=== PATIENT | female | born 1965 | race Caucasian/White ===

== ENCOUNTER 2022-05-04 23:23 | Inpatient (IN) | payer MEDICARE, MEDICAID, SELFPAY ==
[2022-05-05 01:38] VITALS: BP 88/56; PULSE 75; RESP 16; TEMP 36.6; O2SAT 97
--- NOTE | 2022-05-05 01:46 | PC.ADMIT ---
PT is a 56 year old single woman, who lost her youngest son to overdose in February of this year. She states that she is not having thoughts of SI but is grieving and trying to cope with the lose. She admits to a history of opioid use. She states she was seeking help by going to [facility] in [place] and said I did only a small amount of fentayl so I could be admitted . She had been hospitalized in the ICU at [facility] being treated for sepsis, when after discharge to her home she became overwhelmed by the thought of her son being gone and told a family member she didn't know how she would go on, this information was told to the police who sectioned her to [facility]. [facility] determined the need for inpatient evaluation and she was transferred to [facility] with out incident. Her mood is sad and tearful especially when talking about her son, other latif alert and appropriate. Covid test was negative. She signed a CV on arrival she is calm and cooperative.
[2022-05-05] MEDS: cloNIDine HCL 0.1 MG TABLET PO ×4 (05:56→22:07)
[2022-05-05 06:00] VITALS: BP 103/64; PULSE 69; RESP 16; TEMP 36.4; O2SAT 98
[2022-05-05 07:40] LABS: Estimated Average Glucose 97 mg/dL
[2022-05-05 07:46] LABS: Alanine Aminotransferase 14 U/L (0-31); Albumin Level 3.8 g/dL (3.5-5.0); Alkaline Phosphatase 103 U/L (39-117); Anion Gap 13 (12-20); Aspartate Amino Transferase 19 U/L (5-31); Bilirubin Total 0.4 mg/dL (0.0-1.0); Blood Urea Nitrogen 18 mg/dL (9-16); Calcium 8.8 mg/dL (8.4-10.2); Carbon Dioxide 25 mmol/L (22-29); Chloride 104 mmol/L (96-108); Cholesterol 212 mg/dL; Estimated Glomerular Filt Rate 56; Glucose Fasting 84 mg/dL (60-99); HDL Cholesterol 46 mg/dL; LDL Cholesterol Calculated 153 mg/dl; Potassium 4.1 mmol/L (3.3-5.1); Sodium 138 mmol/L (135-145); Total Protein 6.8 g/dL (6.5-8.0); Triglycerides 67 mg/dL
[2022-05-05 08:06] LABS: Thyroid Stimulating Hormone 0.39 uIU/mL (0.32-4.0)
[2022-05-05] MEDS: Famotidine 20 MG TABLET PO ×2 (09:02→22:07)
[2022-05-05] MEDS: Nicotine 14 MG PATCH.TD24 TRANSDERMA (09:02)
[2022-05-05] MEDS: busPIRone HCl 10 MG TABLET PO ×2 (09:02→22:06)
[2022-05-05] MEDS: dilTIAZem HCL CD 240 MG CAP.ER.DEG PO (09:02)
[2022-05-05 09:17] VITALS: BP 104/65; PULSE 76
[2022-05-05] MEDS: clonazePAM 1 MG TABLET PO (09:21)
[2022-05-05] MEDS: Metoprolol Succinate ER 25 MG TAB.ER.24H PO (12:12)
[2022-05-05] MEDS: FLUoxetine HCl 20 MG CAPSULE 40 MG PO (12:13)
[2022-05-05 12:15] VITALS: BP 121/77; PULSE 68
--- NOTE | 2022-05-05 12:25 | HO.PSYADMNOT ---
HPI Date of Service: 05/05/22 Chief Complaint: adjustment disorder Sources of Information: patient interviewed, chart reviewed and crisis/core team assessment reviewed HPI Subjective Notes: Conditional Voluntary Narrative: Patientis a 56 year old female with a history of benzodiazepine dependence and depression. She reports she lost her son in February suddenly and the cause of is still under investigation. She reports she was at [facility] for detox. She was discharged. She had also been at the hospital admitted medically prior to that and was in sepsis. She says she had not been at home for close to a month and when she returned there from the detox facility, she saw her son's belongings and started crying and became increasingly sad. She was screaming. She says her other son's significant other may have called the police. She feels angry and embarrassed. Feels like she doesn't want to be here. She denies SI and says she is grieving the loss of her son. [facility]PAT reviewed. She says she is not on the Suboxone anymore. She says her mother picked up her meds and didn't know she was taken off. Klonopin dose has been the same for as far back as able to review MassPAT (2 years) 2 mg QID although patient says she doesn't always use it that much and generally 2-3 times a day. Patient says she has seizures when she tried to taper. Past Psychiatric History: Reports one inpatient psychiatric admission many years ago and says she received ECT then. Reports her medications have been filled by her PCP for many years. Medical Evaluation Reviewed: Hospitalist Jono Pending [facility] Narrative: COPD Venous stasis History of cellulitis HTN GERD Narrative: Appendectomy Hernia Neck and back surgery Family History: Hx of drug use Social History: Lives alone in senior housing. She says she is the youngest person there. Had 2 sons. One passed recently of unknown cause. Substance History: Opioid use disorder Diagnostics Vital Signs (24Hr): Vital Signs - 24 hr 05/05/22 01:38 05/05/22 06:00 05/05/22 09:17 Temperature 98 F 97.5 F Pulse Rate 75 69 76 Respiratory Rate 16 16 Blood Pressure 88/56 L 103/64 104/65 Pulse Oximetry 97 98 Oxygen Delivery Method Room Air 05/05/22 12:15 Temperature Pulse Rate 68 Respiratory Rate Blood Pressure 121/77 Pulse Oximetry Oxygen Delivery Method Labs Results: 05/05/22 07:21 Labs: Laboratory Results - last 48 hr 05/05/22 05/05/22 07:21 07:21 Sodium 138 Potassium 4.1 Chloride 104 Carbon Dioxide 25 Anion Gap 13 BUN 18 H Creatinine 1.02 Estim Creat Clear Calc TNP Estimated GFR 56 Fasting Glucose 84 Estimat Average Glucose 97 Hemoglobin A1c % 5.0 Calcium 8.8 Total Bilirubin 0.4 AST 19 ALT 14 Alkaline Phosphatase 103 Total Protein 6.8 Albumin 3.8 Triglycerides 67 Cholesterol 212 LDL Cholesterol, Calc 153 HDL Cholesterol 46 TSH 0.39 Meds/Allergies Meds Home Medications Medication Instructions Recorded Confirmed Type cyclobenzaprine 5 mg tablet 10 mg PO TID 05/05/22 05/05/22 History dextroamphetamine-amphetamine 30 30 mg PO BID 05/05/22 05/05/22 History mg tablet (Adderall) fluoxetine 40 mg capsule (Prozac) 40 mg PO DAILY 05/05/22 05/05/22 History metoprolol succinate 25 mg 25 mg PO DAILY 05/05/22 05/05/22 History tablet,extended release 24 hr Allergies Allergies Allergy/AdvReac Type Severity Reaction Status Date / Time amoxicillin [From Augmentin] Allergy Unknown Unknown Verified 05/04/22 23:50 clavulanic acid Allergy Unknown Unknown Verified 05/04/22 23:50 [From Augmentin] Mental Status Exam Mental Status Exam Patient Appearance: Appropriate Patient Orientation: Person, Place, Time and Situation Level of Consciousness: Awake and Restless Patient Behavior: Appropriate, Dependent, Anxious, Good Eye Contact and Crying Mood Description: Depressed, Anxious, Labile, Sad and Nervous Affect Description: Depressed, Sad and Nervous Patient Cognition Impaired: No Ability to Follow Directions: Good Speech Pattern: Clear and Perseverating Hallucinations: None Delusions: Not Present Thought Process: Distracted Thought Content: positive for Intact, positive for Goal Oriented and positive for Perseveration Depressive Symptoms: Increased Anxiety, Crying Spells and Feelings of Worthlessness Judgement: Fair Assessment & Plan Assessment & Plan (1) Depression, major, severe recurrence: Status: Acute Code(s): F33.2 - Major depressive disorder, recurrent severe without psychotic features (2) Polysubstance (including opioids) dependence w/o physiol dependence: Status: Acute Code(s): F19.20 - Other psychoactive substance dependence, uncomplicated (3) Grief at loss of child: Status: Acute Code(s): F43.21 - Adjustment disorder with depressed mood; Z63.4 - Disappearance and of family member (4) Suicidal ideation: Status: Acute Code(s): R45.851 - Suicidal ideations Plan Admit to [facility] Continue current medications. Collaterals from PCP and family. Encourage milieu therapy Disposition planning. Patient educated on: diagnosis Reason for continued inpatient stay Substantial Risk for: harm to self, inability to function and rapid decompensation
[2022-05-05] MEDS: Acetaminophen 325 MG TABLET 650 MG PO (12:26)
[2022-05-05] MEDS: Amphetamine Mixed Salts 20 MG TABLET 30 MG PO (13:54)
[2022-05-05] MEDS: Cyclobenzaprine HCl 10 MG TABLET PO ×2 (13:55→18:40)
[2022-05-05] MEDS: Gabapentin 400 MG CAPSULE PO ×2 (16:22→22:08)
[2022-05-05] MEDS: clonazePAM 1 MG TABLET 2 MG PO ×2 (16:22→22:07)
[2022-05-05 18:00] VITALS: BP 131/82; PULSE 80; RESP 22; TEMP 36.4; O2SAT 98
[2022-05-05] MEDS: hydrOXYzine HCL 25 MG TABLET PO (18:40)
[2022-05-05] MEDS: traZODone HCL 50 MG TABLET PO (22:07)
[2022-05-06 08:49] VITALS: BP 145/93; PULSE 97; TEMP 37.1
[2022-05-06] MEDS: dilTIAZem HCL CD 240 MG CAP.ER.DEG PO (08:58)
[2022-05-06] MEDS: FLUoxetine HCl 20 MG CAPSULE 40 MG PO (08:58)
[2022-05-06] MEDS: Metoprolol Succinate ER 25 MG TAB.ER.24H PO (08:58)
[2022-05-06] MEDS: busPIRone HCl 10 MG TABLET PO ×2 (08:58→20:27)
[2022-05-06] MEDS: Amphetamine Mixed Salts 20 MG TABLET 30 MG PO ×2 (08:59→14:24)
[2022-05-06] MEDS: Famotidine 20 MG TABLET PO ×2 (08:59→20:28)
[2022-05-06] MEDS: Nicotine 14 MG PATCH.TD24 TRANSDERMA (09:12)
[2022-05-06] MEDS: Acetaminophen 325 MG TABLET 650 MG PO (10:03)
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
[2022-05-06] MEDS: cloNIDine HCL 0.1 MG TABLET PO ×2 (14:24→21:49)
[2022-05-06] MEDS: Ibuprofen 800 MG TABLET PO (14:25)
[2022-05-06] MEDS: clonazePAM 1 MG TABLET 2 MG PO ×2 (14:27→21:49)
[2022-05-06] MEDS: Cyclobenzaprine HCl 10 MG TABLET PO ×2 (16:32→20:27)
[2022-05-06] MEDS: hydrOXYzine HCL 25 MG TABLET PO (16:33)
[2022-05-06 18:28] VITALS: BP 144/89; PULSE 70; RESP 16; TEMP 36.4; O2SAT 99
[2022-05-07 08:30] VITALS: BP 110/77; PULSE 80; RESP 16; TEMP 36.3; O2SAT 97
[2022-05-07] MEDS: FLUoxetine HCl 20 MG CAPSULE 40 MG PO (08:39)
[2022-05-07] MEDS: Amphetamine Mixed Salts 20 MG TABLET 30 MG PO ×2 (08:39→14:59)
[2022-05-07] MEDS: Famotidine 20 MG TABLET PO ×2 (08:39→20:59)
[2022-05-07] MEDS: dilTIAZem HCL CD 240 MG CAP.ER.DEG PO (08:39)
[2022-05-07] MEDS: busPIRone HCl 10 MG TABLET PO ×2 (08:39→20:59)
[2022-05-07] MEDS: cloNIDine HCL 0.1 MG TABLET PO ×2 (08:46→19:17)
[2022-05-07] MEDS: clonazePAM 1 MG TABLET 2 MG PO ×2 (08:46→21:04)
[2022-05-07 09:06] LABS: Folate 15.1 ng/mL (> or = 4.0); Vitamin B12 446 pg/mL (200-900)
[2022-05-07] MEDS: Nicotine 14 MG PATCH.TD24 TRANSDERMA (10:03)
[2022-05-07] MEDS: hydrOXYzine HCL 25 MG TABLET PO (13:05)
[2022-05-07] MEDS: Gabapentin 400 MG CAPSULE PO ×2 (13:05→21:04)
[2022-05-07] MEDS: Cyclobenzaprine HCl 10 MG TABLET PO ×2 (14:58→21:00)
[2022-05-07 17:30] VITALS: BP 106/72; PULSE 71; TEMP 36.4
--- NOTE | 2022-05-07 18:09 | HO.PSYCHPN ---
Subjective Subjective Date of Service: 05/07/22 Reason For Visit: adjustment disorder Subjective Notes: Conditional Voluntary Healthcare Proxy: No Guardianship: No Medical Problems Affecting Mental Status: No Interim History: Review of the of her son and events leading to admission. Denies SI, stating that this had been a very difficult time and loss-after her son's , she was diagnosed with sepsis. Upon arrival home after the medical hospitalization she was met with a collection of her son's belongings in her home, which caused distress-she phoned her daughter in law for support who called EMS/police. She describes a traumatic ER experience and states I just wanted someone to listen to me . Focus now is on family-three grandchildren, her surviving son and attempting to move forward. She is spending her time talking, grieving, crying, processing and reports relief . Medication Compliance: Yes Side effects from medications: No Attending Groups: Yes Review of Systems Acute medical concerns: No Medical Review of Systems: unchanged Review of Systems Psychiatric: Reports depression (grief) and Reports suicidal ideation (denies) Mental Status Exam Mental Status Exam Patient Appearance: Appropriate Patient Orientation: Person, Place, Time and Situation Level of Consciousness: Alert Patient Behavior: Appropriate, Talkative, Cooperative and Good Eye Contact Mood Description: Depressed and Sad Affect Description: Flat Patient Cognition Impaired: No Ability to Follow Directions: Good Speech Pattern: Clear, Appropriate and Spontaneous Speech Memory Description: Intact Hallucinations: None Delusions: Not Present Perceptual Disturbances: Derealization Thought Process: Rumination Thought Content: positive for Perseveration and positive for Suicidal Ideation (denies) Depressive Symptoms: Increased Fatigue Judgement: Good Diagnostics Vital Signs (24Hr): Vital Signs - 24 hr 05/06/22 18:28 05/07/22 08:30 Temperature 97.6 F 97.4 F Pulse Rate 70 80 Respiratory Rate 16 16 Blood Pressure 144/89 H 110/77 Pulse Oximetry 99 97 Oxygen Delivery Method Room Air Room Air Labs Results: 05/05/22 07:21 Labs: Laboratory Results - last 48 hr 05/05/22 07:21 Vitamin B12 446 Folate 15.1 Medications Medications Current Medications Acetaminophen (Acetaminophen 325 Mg Tablet) 650 mg PO Q6H PRN PRN Reason: Headache/Pain Mild Scale (1-3) Last Admin: 05/06/22 10:03 Dose: 650 mg Al Hydroxide/Mg Hydroxide (Magnesium Hydrox/Alum Hydrox 30 Ml Oral.Susp) 30 ml PO Q6H PRN PRN Reason: Heartburn/Nausea Albuterol Sulfate (Albuterol Sulfate 90 Mcg 8 Gm Inhaler) 2 puff INHALE RQ4H PRN PRN Reason: sob/wheezing Amphetamine/Dextroamphetamine (Amphetamine Mixed Salts 20 Mg Tablet) 30 mg PO BID@0830,1430 [facility] Last Admin: 05/07/22 14:59 Dose: 30 mg Buspirone HCl (Buspirone Hcl 10 Mg Tablet) 10 mg PO BID [facility] Last Admin: 05/07/22 08:39 Dose: 10 mg Clonazepam (Clonazepam 1 Mg Tablet) 2 mg PO TID PRN PRN Reason: Anxiety Last Admin: 05/07/22 08:46 Dose: 2 mg Clonidine HCl (Clonidine Hcl 0.1 Mg Tablet) 0.1 mg PO TID PRN; Protocol PRN Reason: Anxiety Last Admin: 05/07/22 08:46 Dose: 0.1 mg Cyclobenzaprine HCl (Cyclobenzaprine Hcl 10 Mg Tablet) 10 mg PO TID [facility] Last Admin: 05/07/22 14:58 Dose: 10 mg Diltiazem HCl (Diltiazem Hcl Cd 240 Mg Cap.Er.Deg) 240 mg PO DAILY [facility]; Protocol Last Admin: 05/07/22 08:39 Dose: 240 mg Famotidine (Famotidine 20 Mg Tablet) 20 mg PO BID [facility] Last Admin: 05/07/22 08:39 Dose: 20 mg Fluoxetine HCl (Fluoxetine Hcl 20 Mg Capsule) 40 mg PO DAILY [facility] Last Admin: 05/07/22 08:39 Dose: 40 mg Gabapentin (Gabapentin 400 Mg Capsule) 400 mg PO TID PRN PRN Reason: anxiety Last Admin: 05/07/22 13:05 Dose: 400 mg Hydroxyzine HCl (Hydroxyzine Hcl 25 Mg Tablet) 25 mg PO Q6H PRN PRN Reason: Anxiety Last Admin: 05/07/22 13:05 Dose: 25 mg Ibuprofen (Ibuprofen 800 Mg Tablet) 800 mg PO Q8H PRN PRN Reason: pain moderate Last Admin: 05/06/22 14:25 Dose: 800 mg Magnesium Hydroxide (Milk Of Magnesia 30 Ml Oral.Susp) 30 ml PO DAILY PRN PRN Reason: Constipation Metoprolol Succinate (Metoprolol Succinate Er 25 Mg Tab.Er.24h) 25 mg PO DAILY [facility]; Protocol Last Admin: 05/07/22 08:41 Dose: Not Given Nicotine (Nicotine 14 Mg Patch.Td24) 14 mg TRANSDERMA DAILY [facility] Last Admin: 05/07/22 10:03 Dose: 14 mg Trazodone HCl (Trazodone Hcl 50 Mg Tablet) 50 mg PO BEDTIME PRN PRN Reason: Insomnia Last Admin: 05/05/22 22:07 Dose: 50 mg Allergies Allergies Allergy/AdvReac Type Severity Reaction Status Date / Time amoxicillin [From Augmentin] Allergy Unknown Unknown Verified 05/04/22 23:50 clavulanic acid Allergy Unknown Unknown Verified 05/04/22 23:50 [From Augmentin] Assessment & Plan Assessment & Plan (1) Grief at loss of child: Status: Acute Code(s): F43.21 - Adjustment disorder with depressed mood; Z63.4 - Disappearance and of family member (2) Depression, major, severe recurrence: Status: Acute Code(s): F33.2 - Major depressive disorder, recurrent severe without psychotic features Assessment and Plan: Admit to M5 Continue current medications. Collaterals from PCP and family. Encourage milieu therapy Disposition planning. 05/06 Consider ECT 05/07/22- Continue current regime I spent minutes with the patient and/or on the patient floor today, greater than?50% of which was spent counseling/coordinating care. Patient educated on: diagnosis, medication risk/benefits and therapeutic strategies Informed Consent: understands and further education needed Reason for contiued inpatient stay Substantial Risk for: rapid decompensation
[2022-05-07] MEDS: traZODone HCL 50 MG TABLET PO (21:04)
[2022-05-08 00:52] VITALS: BMI 29.9
[2022-05-08] MEDS: Metoprolol Succinate ER 25 MG TAB.ER.24H PO (08:55)
[2022-05-08] MEDS: dilTIAZem HCL CD 240 MG CAP.ER.DEG PO (08:55)
[2022-05-08] MEDS: Amphetamine Mixed Salts 20 MG TABLET 30 MG PO ×2 (08:55→14:31)
[2022-05-08] MEDS: Nicotine 14 MG PATCH.TD24 TRANSDERMA (08:55)
[2022-05-08] MEDS: FLUoxetine HCl 20 MG CAPSULE 40 MG PO (08:55)
[2022-05-08] MEDS: Famotidine 20 MG TABLET PO ×2 (08:55→21:19)
[2022-05-08] MEDS: busPIRone HCl 10 MG TABLET PO ×2 (08:56→21:20)
[2022-05-08 09:00] VITALS: BP 137/85; PULSE 69; TEMP 36.9
[2022-05-08] MEDS: clonazePAM 1 MG TABLET 2 MG PO ×3 (09:23→19:01)
[2022-05-08] MEDS: Cyclobenzaprine HCl 10 MG TABLET PO ×2 (11:33→21:21)
[2022-05-08] MEDS: cloNIDine HCL 0.1 MG TABLET PO ×2 (11:33→19:00)
[2022-05-08 11:34] VITALS: BP 122/84; PULSE 89
[2022-05-08] MEDS: Milk of Magnesia 30 ML ORAL.SUSP PO (14:37)
--- NOTE | 2022-05-08 16:01 | HO.PSYCHPN ---
Subjective Subjective Date of Service: 05/08/22 Reason For Visit: adjustment disorder Subjective Notes: Conditional Voluntary Healthcare Proxy: No Guardianship: No Medical Problems Affecting Mental Status: No Interim History: Samanta continues to process her anger for the treatment she received from her daughter in law and in the emergency department at her local hospital prior to [place] [facility] [place] She continues with symptoms of grief. Her son's birthday is 05/10 and she would like to be with her granddaughter and her other daughter in law to remember this day. She talked of concerns she had in managing her other son, his addictive behaviors, their effects upon her and how to manage and set appropriate boundaries. She denies SI plan or intent. She has made plans with her grandaughter to celebrate son's birthday with a cake and balloons. Discussed discharge planning. Medication Compliance: Yes Side effects from medications: No Attending Groups: Intermittent Review of Systems Acute medical concerns: No Medical Review of Systems: unchanged Review of Systems Psychiatric: Reports depression (grief) and Reports suicidal ideation (denies) Mental Status Exam Mental Status Exam Patient Appearance: Appropriate Patient Orientation: Person, Place, Time and Situation Level of Consciousness: Alert Patient Behavior: Appropriate, Talkative, Cooperative and Good Eye Contact Mood Description: Depressed and Sad Affect Description: Flat Patient Cognition Impaired: No Ability to Follow Directions: Good Speech Pattern: Clear, Appropriate and Spontaneous Speech Memory Description: Intact Hallucinations: None Delusions: Not Present Perceptual Disturbances: Derealization Thought Process: Rumination Thought Content: positive for Perseveration and positive for Suicidal Ideation (denies) Depressive Symptoms: Increased Fatigue Judgement: Good Diagnostics Vital Signs (24Hr): Vital Signs - 24 hr 05/07/22 17:30 05/08/22 09:00 05/08/22 11:34 Temperature 97.5 F 98.5 F Pulse Rate 71 69 89 Blood Pressure 106/72 137/85 122/84 BMI result Body Mass Index 29.9 Labs Results: 05/05/22 07:21 Labs: Laboratory Results - last 48 hr 05/05/22 07:21 Vitamin B12 446 Folate 15.1 Medications Medications Current Medications Acetaminophen (Acetaminophen 325 Mg Tablet) 650 mg PO Q6H PRN PRN Reason: Headache/Pain Mild Scale (1-3) Last Admin: 05/06/22 10:03 Dose: 650 mg Al Hydroxide/Mg Hydroxide (Magnesium Hydrox/Alum Hydrox 30 Ml Oral.Susp) 30 ml PO Q6H PRN PRN Reason: Heartburn/Nausea Albuterol Sulfate (Albuterol Sulfate 90 Mcg 8 Gm Inhaler) 2 puff INHALE RQ4H PRN PRN Reason: sob/wheezing Amphetamine/Dextroamphetamine (Amphetamine Mixed Salts 20 Mg Tablet) 30 mg PO BID@0830,1430 [facility] Last Admin: 05/08/22 14:31 Dose: 30 mg Buspirone HCl (Buspirone Hcl 10 Mg Tablet) 10 mg PO BID [facility] Last Admin: 05/08/22 08:56 Dose: 10 mg Clonazepam (Clonazepam 1 Mg Tablet) 2 mg PO TID PRN PRN Reason: Anxiety Last Admin: 05/08/22 14:31 Dose: 2 mg Clonidine HCl (Clonidine Hcl 0.1 Mg Tablet) 0.1 mg PO TID PRN; Protocol PRN Reason: Anxiety Last Admin: 05/08/22 11:33 Dose: 0.1 mg Cyclobenzaprine HCl (Cyclobenzaprine Hcl 10 Mg Tablet) 10 mg PO TID [facility] Last Admin: 05/08/22 11:33 Dose: 10 mg Diltiazem HCl (Diltiazem Hcl Cd 240 Mg Cap.Er.Deg) 240 mg PO DAILY [facility]; Protocol Last Admin: 05/08/22 08:55 Dose: 240 mg Famotidine (Famotidine 20 Mg Tablet) 20 mg PO BID [facility] Last Admin: 05/08/22 08:55 Dose: 20 mg Fluoxetine HCl (Fluoxetine Hcl 20 Mg Capsule) 40 mg PO DAILY [facility] Last Admin: 05/08/22 08:55 Dose: 40 mg Gabapentin (Gabapentin 400 Mg Capsule) 400 mg PO TID PRN PRN Reason: anxiety Last Admin: 05/07/22 21:04 Dose: 400 mg Hydroxyzine HCl (Hydroxyzine Hcl 25 Mg Tablet) 25 mg PO Q6H PRN PRN Reason: Anxiety Last Admin: 05/07/22 13:05 Dose: 25 mg Ibuprofen (Ibuprofen 800 Mg Tablet) 800 mg PO Q8H PRN PRN Reason: pain moderate Last Admin: 05/06/22 14:25 Dose: 800 mg Magnesium Hydroxide (Milk Of Magnesia 30 Ml Oral.Susp) 30 ml PO DAILY PRN PRN Reason: Constipation Last Admin: 05/08/22 14:37 Dose: 30 ml Metoprolol Succinate (Metoprolol Succinate Er 25 Mg Tab.Er.24h) 25 mg PO DAILY [facility]; Protocol Last Admin: 05/08/22 08:55 Dose: 25 mg Nicotine (Nicotine 14 Mg Patch.Td24) 14 mg TRANSDERMA DAILY [facility] Last Admin: 05/08/22 08:55 Dose: 14 mg Trazodone HCl (Trazodone Hcl 50 Mg Tablet) 50 mg PO BEDTIME PRN PRN Reason: Insomnia Last Admin: 05/07/22 21:04 Dose: 50 mg Allergies Allergies Allergy/AdvReac Type Severity Reaction Status Date / Time amoxicillin [From Augmentin] Allergy Unknown Unknown Verified 05/04/22 23:50 clavulanic acid Allergy Unknown Unknown Verified 05/04/22 23:50 [From Augmentin] Assessment & Plan Assessment & Plan (1) Grief at loss of child: Status: Acute Code(s): F43.21 - Adjustment disorder with depressed mood; Z63.4 - Disappearance and of family member (2) Depression, major, severe recurrence: Status: Acute Code(s): F33.2 - Major depressive disorder, recurrent severe without psychotic features Assessment and Plan: Admit to M5 Continue current medications. Collaterals from PCP and family. Encourage milieu therapy Disposition planning. 05/06 Consider ECT 05/08/22 Pt denies SI, plan or intent. She is planning discharge and believes this was a crisis where support was needed and family did not offer support after the of her son. She is focused on her three grandchildren and remaining son. I spent minutes with the patient and/or on the patient floor today, greater than?50% of which was spent counseling/coordinating care. Patient educated on: therapeutic strategies Informed Consent: understands and further education needed Reason for contiued inpatient stay Substantial Risk for: stable for discharge
[2022-05-08 18:00] VITALS: BP 112/81; PULSE 79; RESP 18; TEMP 36.1; O2SAT 100
[2022-05-08] MEDS: Ibuprofen 800 MG TABLET PO (19:00)
[2022-05-08] MEDS: Gabapentin 400 MG CAPSULE PO (21:19)
[2022-05-09 08:00] VITALS: BP 129/74; PULSE 70; RESP 16; TEMP 36.1; O2SAT 95
[2022-05-09] MEDS: Famotidine 20 MG TABLET PO (08:30)
[2022-05-09] MEDS: FLUoxetine HCl 20 MG CAPSULE 40 MG PO (08:30)
[2022-05-09] MEDS: busPIRone HCl 10 MG TABLET PO (08:30)
[2022-05-09] MEDS: dilTIAZem HCL CD 240 MG CAP.ER.DEG PO (08:31)
[2022-05-09] MEDS: Amphetamine Mixed Salts 20 MG TABLET 30 MG PO (08:31)
[2022-05-09] MEDS: Metoprolol Succinate ER 25 MG TAB.ER.24H PO (08:31)
[2022-05-09] MEDS: clonazePAM 1 MG TABLET 2 MG PO (08:36)
[2022-05-09] MEDS: cloNIDine HCL 0.1 MG TABLET PO (09:11)
--- NOTE | 2022-05-09 11:07 | PC.NURSE ---
Patient was aware and ready for discharge. Paperwork reviewed with patient . Next dose medication and follow up appointment explained to patient . Patient verbalized understanding. Patient was accompanied with belongings to the front of the building per hospital policy.
--- NOTE | 2022-05-09 17:28 | P.DS_ITS ---
DS: Providers Provider Date of Service: 05/09/22 Date of admission: 05/04/22 23:23 Date of discharge: 05/09/22 Primary care physician: Beny Hernandez MD Admitting clinician: Ector Stark Attending physician on admission: Ector Stark Consults: 05/04/22 23:50 Consult to Hospitalist Routine Consulting Provider: Hospitalist Reason For Exam: routine Attending physician on discharge: Josr Busby Discharging clinician: Yareli Grijalva DS: Diagnosis Discharge Diagnosis (1) Grief at loss of child: Status: Acute (2) Depression, major, severe recurrence: Status: Acute DS: Medications Discharge Medications Home Medications: Home Medications Medication Instructions Recorded Confirmed cyclobenzaprine 5 mg tablet 10 mg PO TID 05/05/22 05/05/22 metoprolol succinate 25 mg 25 mg PO DAILY 05/05/22 05/05/22 tablet,extended release 24 hr Previous Rx's Medication Instructions Recorded albuterol sulfate 90 mcg/actuation 2 puff inhalation RQ4H PRN 05/08/22 aerosol inhaler (Ventolin HFA) sob/wheezing #1 g buspirone 10 mg tablet 10 mg PO BID #14 tabs 05/08/22 clonazepam 1 mg tablet 2 mg PO TID PRN Anxiety #21 tabs 05/08/22 dextroamphetamine-amphetamine 30 30 mg PO BID #14 tabs 05/08/22 mg tablet (Adderall) diltiazem HCl 240 mg 240 mg PO DAILY #14 caps 05/08/22 capsule,extended release 24 hr famotidine 20 mg tablet 20 mg PO BID #14 tabs 05/08/22 fluoxetine 40 mg capsule (Prozac) 40 mg PO DAILY #1 cap 05/08/22 gabapentin 400 mg capsule 400 mg PO TID PRN anxiety #21 caps 05/08/22 nicotine 14 mg/24 hr daily 14 mg transdermal DAILY #30 ea 05/08/22 transdermal patch Mental Status Exam Mental Status Exam Patient Appearance: Appropriate Patient Orientation: Person, Place, Time and Situation Level of Consciousness: Alert Patient Behavior: Appropriate, Talkative, Cooperative and Good Eye Contact Mood Description: Depressed and Sad Affect Description: Flat Patient Cognition Impaired: No Ability to Follow Directions: Good Speech Pattern: Clear, Appropriate and Spontaneous Speech Memory Description: Intact Hallucinations: None Delusions: Not Present Perceptual Disturbances: Derealization Thought Process: Rumination Thought Content: positive for Perseveration and positive for Suicidal Ideation (denies) Depressive Symptoms: Increased Fatigue Judgement: Good Data Data Completed and Pending Completed studies during hospitalization [Text1]: 05/05/22 05/05/22 05/05/22 07:21 07:21 07:21 Sodium 138 Potassium 4.1 Chloride 104 Carbon Dioxide 25 Anion Gap 13 BUN 18 H Creatinine 1.02 Estim Creat Clear Calc TNP Estimated GFR 56 Fasting Glucose 84 Estimat Average Glucose 97 Hemoglobin A1c % 5.0 Calcium 8.8 Total Bilirubin 0.4 AST 19 ALT 14 Alkaline Phosphatase 103 Total Protein 6.8 Albumin 3.8 Triglycerides 67 Cholesterol 212 LDL Cholesterol, Calc 153 HDL Cholesterol 46 Vitamin B12 446 Folate 15.1 TSH 0.39 DS: Summary Hospital Course Hospital Course: Admission to adult psychiatry for exacerbation of situational crisis, history of recurrent major depression, benzodiazepine dependence and grief reaction over the sudden of her son in February 2022. Out patient medication regime was maintained, pt utilized the team and milieu to continue to process her feelings of grief. She was able to sort out precipitants to admission with the team (returning from treatment with [facility], finding her son's belongings were left in her living room, calling family for support, and being sent to crisis for assessment). She was able to create a discharge plan with increased support and felt safe and secure in returning to her home. Time spent discussing smoking cessation with patient: 3 to 10 minutes Status at Discharge Functional status at discharge: independent ambulation Overall status at discharge: patient is progressing back to baseline Time Spent with Patient Time attestation: Total time spent providing and/or coordinating discharge services: 35 Time spent: Greater than 30 minutes Discharge Plan Discharge Patient Disposition: Home, Self-Care Discharge Diagnosis: Recurrent major depression Polysubstance Abuse Grief-recent sudden of her son Referrals: [facility] [Other] - Tomorrow (Patient to follow-up with assigned clinician from [facility], regarding outpatient appointments following discharge from [facility]. ) Beny Hernandez MD [Primary Care Provider] - 05/18/22 8:45 am Discharge Medications: New nicotine 14 mg/24 hr Patch 24 Hour 14 mg transdermal DAILY Qty: 30 0RF diltiazem HCl 240 mg Capsule,Extended Release 24hr 240 mg PO DAILY Qty: 14 0RF Protocol: Hold for SBP/HR < HOLD for SBP < : 90 HOLD for HR < : 60 gabapentin 400 mg Capsule 400 mg PO TID PRN (Reason: anxiety) Qty: 21 0RF clonazepam 1 mg Tablet 2 mg PO TID PRN (Reason: Anxiety) Qty: 21 0RF famotidine 20 mg Tablet 20 mg PO BID Qty: 14 0RF buspirone 10 mg Tablet 10 mg PO BID Qty: 14 0RF albuterol sulfate [Ventolin HFA] 90 mcg/actuation Hfa Aerosol Inhaler 2 puff inhalation RQ4H PRN (Reason: sob/wheezing) Qty: 1 0RF Continued metoprolol succinate 25 mg Tablet Extended Release 24 Hr 25 mg PO DAILY cyclobenzaprine 5 mg Tablet 10 mg PO TID fluoxetine [Prozac] 40 mg Capsule 40 mg PO DAILY Qty: 1 0RF dextroamphetamine-amphetamine [Adderall] 30 mg Tablet 30 mg PO BID Qty: 14 0RF Rx Instructions: administer doses at least 4-6 hours apart Discharge Orders: Discharge Order (Routine); Ordered 05/09/22 Ordered By: Yareli Grijalva Diet: Advance to usual diet Activity on Discharge: As tolerated Stand Alone Forms: Patient Portal Discharge page, Community Support Care Plan Goals: Mood stabilization Grief work with new treatment team Utilize supports Health Concerns: Recurrent severe major depression Polysubstance Abuse Grief over the sudden loss of her child Plan of Treatment: Attend all follow up appointments Take medications as directed Call/return as needed Assessment: non-psychotic non-suicidal Discharge Date/Time: 05/09/22 11:00
== END 2022-05-09 11:00 | disposition home or self-care (01) | DRG 885 ==
PROVIDERS: Social Worker; Admitting Provider Psychiatry & Neurology Psychiatry; PCP Family Medicine; Visit Provider Clinical Nurse Specialist Psychiatric/Mental Health, Adult
DX: F33.2 Major depressive disorder, recurrent severe without psychotic features (principal); R45.851 Suicidal ideations; F19.20 Other psychoactive substance dependence, uncomplicated; F43.21 Adjustment disorder with depressed mood; I10 Essential (primary) hypertension; J44.9 Chronic obstructive pulmonary disease, unspecified; F17.210 Nicotine dependence, cigarettes, uncomplicated; F19.10 Other psychoactive substance abuse, uncomplicated; Z63.4 Disappearance and death of family member; Z71.6 Tobacco abuse counseling; Z88.0 Allergy status to penicillin; Z88.1 Allergy status to other antibiotic agents; Z79.899 Other long term (current) drug therapy
CPT/HCPCS: 36415; 80053; 80061; 82607; 82746; 83036; 84443